=== PATIENT | female | born 1990 | race Caucasian/White ===

== ENCOUNTER 2020-01-13 12:51 | Emergency (ER) | payer OTHER, SELFPAY ==
--- NOTE | ~2020-01-13 | XR_ITS ---
EXAMINATION: XR chest 2V DATE: 01/13/2020 13:34 INDICATION: Productive cough. Smoker. TECHNIQUE: Frontal and lateral views of the chest were obtained. COMPARISON: Chest 2 views 02/25/2014 FINDINGS: The chest demonstrates clear lungs without pneumonia, pleural effusion, or pneumothorax. Th e heart size is normal. IMPRESSION: 1. No acute cardiopulmonary disease. Reviewed, dictated and finalized at location A.
[2020-01-13 13:03] VITALS: BP 129/79; PULSE 87; RESP 16; TEMP 36.7; O2SAT 99
--- NOTE | 2020-01-13 13:19 | ED.URI ---
HPI - URI/Sore Throat General Chief Complaint: Upper Respiratory Infection Stated Complaint: runny Nose, Cough Time Seen by Provider: 01/13/20 13:13 Source: patient and RN notes reviewed Mode of arrival: ambulatory Limitations: no limitations History of Present Illness HPI Narrative: Patient presents today complaining of a 1 month history of cough that has recently become productive, congestion, rhinorrhea. States cough is worsening since onset. Denies fever, chills or sweats, sore throat, ear pain, shortness of breath. Denies history of asthma or COPD, but does report history of bronchitis. She started taking some NyQuil last night, which did provide some relief, but has not tried any other medication since onset of symptoms. She sought treatment today because she had to call into work. States she develops similar symptoms every year. MD elicited complaint: cough Related Data Home Medications Medication Instructions Recorded Confirmed Iud 01/13/20 Allergies Allergy/AdvReac Type Severity Reaction Status Date / Time No Known Allergies Allergy Unverified 12/29/11 12:25 Review of Systems Review of Systems: Narrative: CONSTITUTIONAL: Denies body aches, fever, chills, or sweats. EYES: Denies visual changes, redness, or discharge. ENT: Denies sore throat, or otalgia. + Congestion, rhinorrhea CARDIOVASCULAR: Denies chest pain, palpitations, or edema. RESPIRATORY: Denies dyspnea. + Cough GASTROINTESTINAL: Denies abdominal pain, nausea, vomiting, or diarrhea. GENITOURINARY: Denies dysuria or hematuria. SKIN: Denies rash, itching, or wounds. MUSCULOSKELETAL: Denies back pain, joint pain, or myalgia. NEUROLOGIC: Denies headache, numbness, tingling, or weakness. PSYCH: Denies depression or anxiety. PMFSH Comments At time of signature, I have reviewed and agree with nursing past medical, surgical, social and family history unless otherwise noted. Please see nursing chart for further information. There is no relevant family history pertinent to the presenting complaint Exam Narrative: Exam Narrative: GENERAL: Well-appearing, over-nourished, and in no acute distress. HEAD: Normocephalic, atraumatic. EYES: EOMI. No redness or drainage. Conjunctivae normal. ENT: Mucous membranes pink and moist. Nares congested with rhinorrhea. TMs normal bilaterally. Throat normal. Uvula midline. NECK: Normal AROM. Supple. No lymphadenopathy. CHEST: No respiratory distress. Clear to auscultation. HEART: Regular rate and rhythm. No murmur appreciated. Normal peripheral pulses. EXTREMITIES: Normal range of motion. No edema. SKIN: Warm, dry, no rash. Capillary refill normal. Normal skin turgor. NEURO: No focal deficits. Alert and oriented x3. Gait steady. PSYCH: Normal affect. No signs of depression or anxiety. Course Vital Signs Vital signs: Vital Signs Temperature 98.0 F 01/13/20 13:03 Pulse Rate 87 01/13/20 13:03 Respiratory Rate 16 01/13/20 13:03 Blood Pressure 129/79 01/13/20 13:03 Pulse Oximetry 99 01/13/20 13:03 Temperature 98.0 F 01/13/20 13:03 Pulse Rate 87 01/13/20 13:03 Respiratory Rate 16 01/13/20 13:03 Blood Pressure 129/79 01/13/20 13:03 Pulse Oximetry 99 01/13/20 13:03 Reviewed. Pt has been instructed to follow up with her PCP regarding her elevated blood pressure today. MDM - URI/Sore Throat Differential Diagnosis Differential diagnosis: Likely upper respiratory infection, otitis media, sinusitis, viral infection, bronchitis and other (Pneumonia) Imaging Data Radiologist's impression: ITS Impressions Chest X-Ray 01/13/20 13:38 IMPRESSION: 1. No acute cardiopulmonary disease. Critical Care Time Critical Care Time Critical Care Time: No Discharge Plan Discharge Clinical Impression: Bronchitis Patient Disposition: Home, Self-Care Condition: Stable Instructions: Acute Bronchitis (ED) Additional Instructions: Your chest x-ray is ne
== END 2020-01-13 14:03 | disposition home or self-care (01) ==
PROVIDERS: Emergency Provider Nurse Practitioner
DX: J40 Bronchitis, not specified as acute or chronic (principal)
CPT/HCPCS: 71046; 99213; G0463

== ENCOUNTER 2020-11-15 04:00 | Emergency (ER) | payer BC, SELFPAY ==
--- NOTE | ~2020-11-15 | CT_ITS ---
EXAMINATION: CT abdomen pelvis wo con EXAM DATE: 11/15/2020 05:45 INDICATION: Right lower quadrant pain. TECHNIQUE: Spiral CT of the abdomen and pelvis was performed without contrast. Axial, coronal and s agittal images of the abdomen and pelvis were reviewed. The dose-length product (DLP) for this exami nation was 1446.23 mGy-cm. The exposure was tailored according to patient size (auto mA exposure con trol), and iterative reconstruction (ASIR) was used as additional dose reduction technique. There is no prior study for comparison. FINDINGS: The liver, spleen, adrenal glands and pancreas are unremarkable. Gallbladder is unremarkab le. No biliary obstruction. There is no nephrolithiasis or hydronephrosis. There is IUD which jeana ears to be centrally located within the endometrium, expected position. There is cystic mass arising from the right ovary, which crosses the midline, measures up to 13 cm. 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 The bladder is unremar kable. There is no retroperitoneal or pelvic lymphadenopathy. The appendix is normal. The stomach and small bowel are unremarkable. There is expected amount of c olonic stool. No free intraperitoneal gas. The heart is normal in size. There are no pericardial or pleural effusions. The lung bases are unremarkable. There are no osteoblastic or osteolytic les ions identified. IMPRESSION: 1. No acute intra-abdominal findings. 2. Right ovarian 13 cm cystic mass. Recommend pelvic sonogram, ADDICTIONS COUNSELOR consult. Reviewed, dictated and finalized at location A.
[2020-11-15 04:02] VITALS: BP 137/85; PULSE 77; RESP 16; TEMP 36.9; O2SAT 100
[2020-11-15 04:54] VITALS: BP 120/106; PULSE 66; RESP 22; O2SAT 100
--- NOTE | 2020-11-15 05:01 | ED.ABDPAIN ---
HPI - Abdominal Pain General Chief Complaint: Abdominal Pain Stated Complaint: Abd pain Time Seen by Provider: 11/15/20 05:00 Source: patient Mode of arrival: ambulatory Limitations: no limitations History of Present Illness HPI narrative: Patient is a 30-year-old female complaining of right lower quadrant pain, sharp, 4 out of 10, nonradiating accompanied by nausea and dysuria that started yesterday. Patient denies any chest pain, shortness of breath, diarrhea, fever or chills. Related Data Home Medications Medication Instructions Recorded Confirmed Iud 01/13/20 Allergies Allergy/AdvReac Type Severity Reaction Status Date / Time No Known Allergies Allergy Unverified 12/29/11 12:25 Review of Systems Review of Systems: All systems reviewed & are unremarkable except as noted in HPI and below Constitutional: Constitutional: Denies body ache(s), Denies chills, Denies excessive sweating, Denies fatigue, Denies fever(s), Denies headache(s), Denies lethargy, Denies malaise, Denies weakness and Denies weight loss Eyes: Eyes: Denies blurry vision, Denies change in vision and Denies loss of vision ENT: Denies dizziness, Denies ear discharge, Denies headache(s), Denies lip swelling, Denies epistaxis, Denies nasal congestion, Denies neck pain, Denies throat swelling and Denies tongue swelling Cardiovascular: Cardiovascular: Denies chest pain, Denies chest pain at rest, Denies chest pain with activity, Denies diaphoresis, Denies rapid heart rate, Denies edema, Denies irregular heart rhythm, Denies lightheadedness, Denies palpitations, Denies dyspnea and Denies dyspnea on exertion Respiratory: Respiratory: Denies chest congestion, Denies cough, Denies hemoptysis, Denies dyspnea and Denies dyspnea on exertion Gastrointestinal: Gastrointestinal: Denies melena, Denies hematochezia, Denies diarrhea and Denies hematemesis Musculoskeletal: Musculoskeletal: Denies abnormal gait, Denies deformity, Denies joint swelling, Denies limited range of motion, Denies neck pain and Denies numbness Neurologic: Denies Abnormal speech present, Denies abnormal gait, Denies confusion, Denies dizziness, Denies headache(s), Denies focal weakness, Denies loss of vision, Denies numbness, Denies Other visual disturbances, Denies Sensory deficit (Neuro) and Denies weakness Psychiatric: Psychiatric: Denies confusion, Denies depression, Denies auditory hallucinations, Denies homicidal ideation and Denies suicidal ideation Endocrine: Endocrine: Denies cold intolerance, Denies excessive sweating, Denies fatigue, Denies heat intolerance and Denies palpitations Hematologic/Lymphatic: Hematologic/Lymphatic: Denies easy bleeding and Denies easy bruising Allergic/Immunologic: Allergic/Immunologic: Denies lip swelling, Denies throat swelling and Denies tongue swelling [facility] Social History Social History Gender identity (if verbalized by the patient): Female Exam Const: General: cooperative, healthy appearing, comfortable, no acute distress, well developed, alert and awake; No confusion Orientation/consciousness: oriented to person, oriented to place, oriented to time, patient oriented x3 and No confusion Limitations: no limitations HENMT: Head: normal to inspection, normocephalic and atraumatic Ears: hearing grossly normal bilaterally, TM normal on the right and TM normal on the left General nose exam: Normal external nose present, Normal nares present and No nasal discharge present Face and sinus: normal facial exam Mouth: Yes Normal oral and palatal mucosa present, Yes lip normal, Yes tongue normal and Yes oropharynx normal Throat: posterior oropharynx normal, tonsils normal and uvula midline Eyes: General: appearance normal, both eyes and all related structures Pupils: Equal, round and reactive pupils present EOM: EOMs intact bilaterally Neck: Neck: normal visual inspection, full ROM, no lymphadenop
[2020-11-15 05:15] LABS: Basophils Absolute Auto 0.1 K/mm3 (0.0-0.1); Basophils Percent Auto 0.5 % (0.2-1.2); Eosinophils Absolute Auto 0.1 K/mm3 (0-0.3); Eosinophils Percent Auto 0.5 % (0-4.4); Hematocrit 40.6 % (37.0-47.0); Hemoglobin 12.8 g/dL (12.0-15.0); Immature Granulocyte Absolute 0.11 K/mm3 (0.00-0.031); Immature Granulocyte Percent A 0.7 % (0-0.5); Lymphocytes Absolute Auto 1.87 K/mm3 (0.9-3.2); Lymphocytes Percent Auto 12.3 % (18.3-44.2); Mean Corpuscular HGB Conc 31.5 g/dl (32-36); Mean Corpuscular Hemoglobin 26.6 pg (26-34); Mean Corpuscular Volume 84.2 fl (80-100); Monocytes Absolute Auto 0.5 K/mm3 (0.1-0.6); Monocytes Percent Auto 3.6 % (2.6-8.5); Neutrophils Absolute Auto 12.5 K/mm3 (1.3-6.7); Neutrophils Percent Auto 82.4 % (45.5-73.1); Platelet Count Result 348 k/mm3 (150-375); Red Blood Count 4.82 M/mm3 (4.2-5.4); Red Cell Distribution Width 14.6 % (11.5-14.5); White Blood Count 15.2 K/mm3 (4.5-10.0)
[2020-11-15 05:25] LABS: Add Urine Microscopic? YES; Appearance Urine Cloudy (Clear); Bilirubin Urine Negative (Negative); Blood Urine Negative (Negative); Color Urine Yellow (Yellow); Glucose Urine UA Negative (Negative); Ketones Urine Negative (Negative); Leukocyte Esterase Ur Negative LEU/UL (Negative); Mucus Urine Rare /lpf; Nitrate Urine Negative (Negative); Protein Urine 1+ mg/dL (Negative); RBC Urine 0-2 /hpf (0-2); Specific Grav Ur 1.024 (1.001-1.035); Squamous Epithelial Cell Urine Rare /hpf (Few); WBC Urine 0-3 /hpf
--- NOTE | 2020-11-15 05:35 | PC.NURSE ---
Pt to CT via stretcher at this time.
[2020-11-15 05:41] LABS: Alanine Aminotransferase 21 U/L (4-35); Alkaline Phosphatase 101 U/L (38-126); Anion Gap 7 mmol/L (8-16); Aspartate Amino Transferase 18 U/L (14-36); Bilirubin,Total 0.5 mg/dL (0.2-1.3); Blood Urea Nitrogen 12 mg/dL (7-17); Calcium 9.1 mg/dL (8.4-10.2); Carbon Dioxide 26 mmol/L (22-30); Chloride 103 mmol/L (98-107); Estimated CRCL calculation 142 ml/min; Estimated Glomerular Filt Rate > 60; Glucose 150 mg/dL (65-110); Lipase 45 U/L (23-300); Potassium 3.8 mmol/L (3.4-5.0); Sodium 136 mmol/L (137-145)
[2020-11-15 06:04] VITALS: BP 141/72; PULSE 59; RESP 16; O2SAT 100
[2020-11-15] MEDS: KETOROLAC 30 MG/ML VIAL (*BKC) IV PUSH (07:25)
[2020-11-15 07:29] VITALS: BP 125/87; PULSE 64; RESP 16; O2SAT 100
== END 2020-11-15 07:33 | disposition home or self-care (01) ==
PROVIDERS: Emergency Provider Emergency Medicine
DX: N83.201 Unspecified ovarian cyst, right side (principal)
CPT/HCPCS: 36415; 74176; 80053; 81001; 81025; 83690; 85025; 96374; 99284; J1885

== ENCOUNTER 2020-11-16 02:07 | Day surgery (SDC) | payer BC, SELFPAY ==
[2020-11-15 15:15] VITALS: BMI 59.4
--- NOTE | 2020-11-15 15:50 | WPDANESEPPF ---
Anes - Initial Pre Proc Eval Procedure: Operation Date: 11/16/20 10:00 Proposed Procedures p Laparoscopic Right Ovarian Cystectomy, Possible Right Salpingo Oophorectomy - Lambert Montesinos MD <Buddy Matthew MD - Last Filed: 11/16/20 09:38> Date/Time: 11/15/20 15:50 <Buddy Matthew MD - Last Filed: 11/16/20 09:38> Surgeon: Lambert Montesinos MD <Buddy Matthew MD - Last Filed: 11/16/20 09:38> Pre Op Diagnosis: pain right ovarian mass <Buddy Matthew MD - Last Filed: 11/16/20 09:38> Patient Data Age: 30 Gender: F Height: 1.52 m Weight: 138 kg <Buddy Matthew MD - Last Filed: 11/16/20 09:38> Allergies Allergy/AdvReac Type Severity Reaction Status Date / Time No Known Allergies Allergy Unverified 11/16/20 08:54 <Buddy Matthew MD - Last Filed: 11/16/20 09:38> Home Medications Medication Instructions Recorded Confirmed Type Iud 01/13/20 History albuterol sulfate [ProAir HFA] 2 puff INHALATION Q4-6H PRN #18 gm 01/13/20 11/16/20 Rx inhalational spacing device #1 each 01/13/20 11/15/20 Rx [BreatheRite MDI Spacer] bupropion HCl 150 mg PO DAILY 11/15/20 11/16/20 History sertraline 25 mg PO DAILY 11/15/20 11/16/20 History <Buddy Matthew MD - Last Filed: 11/16/20 09:38> Patient hx anesthesia problems: none <Rod Chavez DO - Last Filed: 11/16/20 08:52> Family hx anesthesia problems: none <Rod Chavez DO - Last Filed: 11/16/20 08:52> PMFSH Past Medical History Medical History: Medical History Chronic GERD Morbid obesity with BMI of 50.0-59.9, adult Smoker <Buddy Matthew MD - Last Filed: 11/16/20 09:38> Social History Social History: Social History Years smoked: 0.3 Smoking status: Current every day smoker Tobacco type: e-cigarettes/vaping Alcohol intake: current Living arrangements: with family Gender identity (if verbalized by the patient): Female Sexual Orientation (if Verbalized by the Patient): Straight or Heterosexual Spiritual care concerns: No <Buddy Matthew MD - Last Filed: 11/16/20 09:38> Anes - Eval Final PreProcedure Day of Procedure 11/15/20 15:50 <Buddy Matthew MD - Last Filed: 11/16/20 09:38> Patient weight: super morbidly obese <Buddy Matthew MD - Last Filed: 11/16/20 09:38> Heart: regular rate and rhythm <Buddy Matthew MD - Last Filed: 11/16/20 09:38> Lungs: clear to auscultation and normal air movement <Buddy Matthew MD - Last Filed: 11/16/20 09:38> Airway: Mallampati scale class II <Buddy Matthew MD - Last Filed: 11/16/20 09:38> Neurological: alert and oriented <Buddy Matthew MD - Last Filed: 11/16/20 09:38> Last oral intake: >/= 8 hours <Buddy Matthew MD - Last Filed: 11/16/20 09:38> ASA classification: III <Buddy Matthew MD - Last Filed: 11/16/20 09:38> Emergent: no <Buddy Matthew MD - Last Filed: 11/16/20 09:38> Anesthetic plan: proceed <Buddy Matthew MD - Last Filed: 11/16/20 09:38> Anesthesia type and monitoring: general ETT <Buddy Matthew MD - Last Filed: 11/16/20 09:38> Informed Consent: The patient's anesthetic plan and its attendant risks and benefits were discussed with the patient/family/POA. Questions were solicited and answers provided to the satisfaction of the patient/family/POA. <Buddy Matthew MD - Last Filed: 11/16/20 09:38>
[2020-11-16] VITALS (13 sets, daily range): BP systolic 108–132; BP diastolic 66–90; PULSE 58–100; RESP 12–20; TEMP 36.1–36.6; O2SAT 93–100
--- NOTE | 2020-11-16 07:24 | PM.IMHP ---
H&P: HPI History of Present Illness Date/Time: 11/16/20 07:24 Chief Complaint: pelvic pain adnexal mass Narrative: 30 yo who presents for laparoscopic Right ovarian cystectomy and possible right oophorectomy. Pt initially presented to the ED yesterday for acute onset RLQ pelvic pain. Pt states the pain was throbbing in nature. She states the pain is 10/10 at its worst but the intensity will wax and wane. Pt had CT performed in the ED that showed a 13cm R ovarian mass. Review of Systems Cardiovascular: Cardiovascular: Denies chest pain, Denies leg edema, Denies palpitations, Denies dyspnea and Denies dyspnea on exertion Respiratory: Respiratory: Denies cough, Denies dyspnea and Denies dyspnea on exertion Gastrointestinal: Gastrointestinal: Denies abdominal pain, Denies constipation, Denies diarrhea, Denies nausea and Denies vomiting Genitourinary: Genitourinary: Denies hematuria, Denies urinary frequency, Denies dysuria, Denies pelvic pain, Denies urinary incontinence and Denies vaginal discharge Neurologic: Reports system reviewed and no additional complaints, except as documented Psychiatric: Psychiatric: Reports no additional psychiatric complaints Endocrine: Endocrine: Denies palpitations PMFSH Past Medical History Medical History Chronic GERD Morbid obesity with BMI of 50.0-59.9, adult Smoker Social History Social History Years smoked: 0.3 Smoking status: Current every day smoker Tobacco type: e-cigarettes/vaping Alcohol intake: current Living arrangements: with family Gender identity (if verbalized by the patient): Female Sexual Orientation (if Verbalized by the Patient): Straight or Heterosexual Spiritual care concerns: No Meds Home Medications and Allergies Home Medications Medication Instructions Recorded Confirmed Type Iud 01/13/20 History albuterol sulfate [ProAir HFA] 2 puff INHALATION Q4-6H PRN #18 gm 01/13/20 11/15/20 Rx inhalational spacing device #1 each 01/13/20 11/15/20 Rx [BreatheRite MDI Spacer] bupropion HCl 150 mg PO DAILY 11/15/20 11/15/20 History sertraline 25 mg PO DAILY 11/15/20 11/15/20 History Allergies Allergy/AdvReac Type Severity Reaction Status Date / Time No Known Allergies Allergy Unverified 12/29/11 12:25 Exam Const: General: in distress and uncomfortable Nutritional Appearance: obese Eyes: EOM: EOMs intact bilaterally Neck: Neck: supple Thyroid: thyroid normal Chest: Breast/axilla inspection: normal inspection of the breasts Breast/axilla palpation: normal palpation of the breasts, normal palpation of the axillae and no axillary lymphadenopathy Resp: Effort & Inspection: normal respiratory effort Auscultation: clear to auscultation bilaterally Cardio: Rate: regular rate Rhythm: regular rhythm GI: Inspection: non-distended, Pannus present and obesity GI Palp: Yes Soft to palpation, Yes Tenderness to palpation present (GI) and Yes Guarding due to palpation present (GI) Auscultation: normal bowel sounds : General: Yes bladder normal to palpation External Female Exam: normal external appearance Speculum Exam - Vagina: normal vaginal discharge and No vaginal bleeding Speculum Exam - Cervix: nontender Bimanual exam- vagina & uterus: bladder normal to palpation and No Cervical tenderness present Bimanual Exam- Adnexa, other: tender OB/external & speculum: No vaginal bleeding Skin: General skin exam: normal color and no rashes or lesions noted Neuro: Cognition (Neuro): normal cognition Speech: normal speech Extrem: General: normal to inspection and no edema Psych: Mental Status: mental status grossly normal Affect: normal affect Assessment and Plan Assessment and plan (1) Adnexal mass: Code(s): N94.89 - Other specified conditions associated with female genital organs and menstrual cycle Status: Acute Assessment and Plan: pt presented to E
--- NOTE | 2020-11-16 07:30 | WPDHPUPDATE1 ---
History and Physical Update Update Date/Time: 11/16/20 07:30 History and Physical has been reviewed, including an updated exam of the patient. There are NO changes in the patient's condition. Risks, benefits, and alternatives have been discussed and questions answered. Patient agrees to proceed with procedure.
[2020-11-16] MEDS: ACETAMINOPHEN 500 MG TABLET 1000 MG PO (08:30)
[2020-11-16] MEDS: LACTATED RINGERS 1,000 ML 30 ML IV CONT ×2 (08:33→12:28)
[2020-11-16] MEDS: KETOROLAC 15 MG/ML VIAL (*BKC) IV PUSH (08:40)
[2020-11-16 08:46] LABS: Hematocrit 39.2 % (37.0-47.0); Hemoglobin 12.2 g/dL (12.0-15.0); Mean Corpuscular HGB Conc 31.1 g/dl (32-36); Mean Corpuscular Hemoglobin 26.4 pg (26-34); Mean Corpuscular Volume 84.8 fl (80-100); Mean Platelet Volume 8.8 fl (7.4-10.4); Platelet Count Result 304 k/mm3 (150-375); Red Blood Count 4.62 M/mm3 (4.2-5.4); White Blood Count 10.7 K/mm3 (4.5-10.0)
[2020-11-16] MEDS: LIDO 1%/EPINEPHRINE 1:100,000 50 ML VIAL INFILTRATE (11:04)
--- NOTE | 2020-11-16 11:52 | W.PM.PROC2 ---
Procedure Note - Detailed Date of Procedure 11/16/20 Pre-op Diagnosis pain right ovarian mass Post-op Diagnosis same Procedure Performed Laparoscopic Right ovarian cystectomy right salpingectomy 60 min of lysis of adhesions Surgeon Lambert Montesinos MD Anesthesia general Indications Pt presented to ED with acute onset pelvic pain. CT scan noted 13 cm right ovarian cyst Findings dense adhesions between the bowel omentum and the left abdominal and pelvic side wall extending from the pelvic brim to the splenic flexure Large simple appearing fluid filled Right ovarian cyst Description of Procedure The patient was taken to the operating room where general endotracheal anesthesia was undertaken and found to be adequate. She was then prepped and draped in the dorsal lithotomy position and placed in adjustable stirrups. A pre-operative team brief and a time out were completed. A catheter was placed to drain the bladder. Retractors were placed placed in the vagina and the cervix was identified. An acorn uterine manipulator was placed. {Attention was then turned to the abdomen which was anesthetized umbilically with injected anesthetic. A 5 mm skin incision was made in the umbilicus. A 5 mm optical trocar was then placed with direct camera visualization of the abdominal layers during placement. The trocar stylet was removed and the camera was used to verify intra-abdominal placement. CO2 insufflation was then connected and resumed. The pelvis was inspected. Upon entry, the ovarian mass was noted to obstruct the majority of the abdominal and pelvic cavity. A left lower quadrant 5 mm port was placed, in addition to a right lower quadrant 5 port in the standard fashion after using local anesthetic. A laparoscopic aspiration needle was introduced under direct visualization. The needle was introduced into the ovarian mass. The needle was placed on wall suction. The ovarian mass was then drained under direct visualization. After the ovarian cyst was decompressed, further evaluation of the pelvic anatomy was performed. The uterus and left adnexa were unable to be visualized due to bowel adhesions. The bowel adhesions were then taken down along the left pelvic and abdominal side wall with laparoscopic monopolar scissors. Adhesiolysis took 60 min to free the bowel enough to visualize the pelvic anatomy. Dissection was not carried up to the level of the splenic flexure. The left fallopian and ovary were visualized and appeared grossly normal. At this time, the large deflated ovarian cyst wall was remaining. After several unsuccessful attempts to dissect the cyst wall away, decision was made to removed the cyst and ovarian capsule in its entirety. The ovarian capsule was ligated from the remainder of the ovary with a ligasure device. The right fallopian tube was noted to be intimately adherent to the ovarian cyst capsule. A right salpingectomy was also performed in order to completely remove the ovarian cyst. The LLQ laparoscopic port was then converted to a 12 mm laparoscopic port to allow an endocatch pouch to remove the specimen. The specimen was placed in the pouch and removed through the laparoscopic port without difficulty. The surgical field was thoroughly irrigated using normal saline. The area of adhesions dissection over the left adnexa on the pelvic side wall was noted to be oozing blood. Hemostasis was obtained using cautery and hemaderm powder. All surgical beds were noted to be hemostatic. A Dean-Isis deviced was used to closed the LLQ laparoscopic port with Vicryl suture. The abdomen was relieved of all CO2 gas. All remaining trocars were removed from the abdomen. Sponge, lap and needle counts were correct. All skin incisions were closed with 4-0 Vicryl suture subcuticularly. The uterine manipulator was removed from the uterus. Hemostasis of the cervix was noted. The urinary catheter was removed. The patient was taken out of dorsal lithotomy position. Anesthes
[2020-11-16] MEDS: fentaNYL CITRATE INJ (*CRX) 100 MCG/2 ML VIAL 25 MCG IV PUSH ×9 (12:15→15:06)
[2020-11-16] MEDS: ONDANSETRON INJ 4 MG/2 ML VIAL IV PUSH (12:22)
[2020-11-16] MEDS: HYDROmorphone HCL INJ (*CRX) 1 MG/ML SYR 0.5 MG IV PUSH ×2 (13:03→13:09)
[2020-11-16] MEDS: oxyCODONE HCL (*CRX) 5 MG TAB IR PO (14:06)
== END 2020-11-16 16:20 | disposition home or self-care (01) ==
PROVIDERS: Visit Provider Student in an Organized Health Care Education/Training Program
PROC: (CPT 49320; principal; 2020-11-16 10:00)
DX: D27.0 Benign neoplasm of right ovary (principal); K66.0 Peritoneal adhesions (postprocedural) (postinfection); E66.01 Morbid (severe) obesity due to excess calories; Z68.43 Body mass index [BMI] 50.0-59.9, adult; F17.290 Nicotine dependence, other tobacco product, uncomplicated; Z79.899 Other long term (current) drug therapy
CPT/HCPCS: 58662; 58661; 36415; 85027; 86850; 86900; 86901; 88305; A9270; J0330; J1100; J1170; J1885; J2250; J2405; J2704; J2710; J3010; J7030; J7120